=== PATIENT | female | born 1980 ===

== ENCOUNTER 2016-11-11 01:23 | Emergency (ER) | payer SELFPAY ==
[2016-11-11 01:43] VITALS: BP 134/79; PULSE 84; RESP 18; TEMP 98.2; O2SAT 100
--- NOTE | 2016-11-11 02:20 | ED PDOC ---
HPI: Allergic Reaction Time Seen by Provider: 11/11/16 01:56 Chief Complaint (Nursing): Allergic Reaction Chief Complaint (Provider): allergic reaction History Per: Patient History/Exam Limitations: no limitations Onset/Duration Of Symptoms: Days (1 week), Waxing/Waning Current Symptoms Are (Timing): Still Present Associated Symptoms: Skin Rash, Swelling, Itching Home/EMS Treatment: Benadryl Additional History Per: Patient Additional Complaint(s): 36 y/o female no past medical history presents for eval of possible allergic reaction x 1 week. Patient notes intermittent raised rash since onset, with associated periorbital swelling and throat itching last night, which prompted ED visit. Patient last took benadryl 2 days ago. Denies fever, nausea/vomiting , chest pain, shortness of breath, palpitations, abdominal pain, changes in bowel movements, known allergen. Past Medical History Reviewed: Historical Data, Nursing Documentation, Vital Signs Vital Signs: Last Vital Signs Temp 98.2 F 11/11/16 01:40 Pulse 84 11/11/16 01:40 Resp 18 11/11/16 01:40 BP 134/79 11/11/16 01:40 Pulse Ox 100 11/11/16 01:40 - Medical History PMH: Diabetes Denies: Chronic Kidney Disease - Surgical History Surgical History: Appendectomy - Family History Family History: States: Unknown Family Hx - Home Medications Home Medications: Ambulatory Orders Medication Instructions Recorded Nitrofurantoin Macrocrystals 100 mg PO BID #10 cap 10/04/15 [Macrobid] D-Methorphan/PE/Acetaminophen 1 pkt PO DAILY #8 pkt 04/06/16 [Theraflu Daytime Severe Cold & Cough 650 mg-2] Prednisone 50 mg PO DAILY #4 tablet 11/11/16 - Allergies Allergies/Adverse Reactions: Allergies Allergy/AdvReac Type Severity Reaction Status Date / Time No Known Allergies Allergy Unverified 10/19/12 02:55 Review of Systems ROS Statement: Except As Marked, All Systems Reviewed And Found Negative Eyes: Positive for: Eyelid Inflammation Skin: Positive for: Rash Physical Exam - Reviewed Nursing Documentation Reviewed: Yes Vital Signs Reviewed: Yes - Physical Exam Appears: Positive for: Well, Non-toxic, No Acute Distress Head Exam: Positive for: ATRAUMATIC, NORMAL INSPECTION, NORMOCEPHALIC Skin: Positive for: Rash (raised urtical rash noted b/l UE, abdomen) Eye Exam: Positive for: EOMI, PERRL, Periorbital swelling (mild upper lid swelling b/l). Negative for: Periorbital tenderness, Conjunctival injection ENT: Positive for: Normal ENT Inspection Cardiovascular/Chest: Positive for: Regular Rate, Rhythm Respiratory: Positive for: Normal Breath Sounds Gastrointestinal/Abdominal: Positive for: Normal Exam Back: Positive for: Normal Inspection Extremity: Positive for: Normal ROM Neurologic/Psych: Positive for: Alert, Oriented - ECG O2 Sat by Pulse Oximetry: 100 - Progress ED Course And Treament: IV solumedrol, IV benadryl, IV pepcid On re-eval, patient states she is feeling better. Rash improving, swelling improved. Patient educated on findings, discharged with rx Prednisone. Advised to continue Benadryl. Follow up PMD 2-3 days. Return to ED for worsening/concerning symptoms. Disposition - Clinical Impression Clinical Impression: Rash, Angioedema, Allergic reaction - Patient ED Disposition Is Patient to be Admitted: No Counseled Patient/Family Regarding: Studies Performed, Diagnosis, Need For Followup, Rx Given - Disposition Referrals: [facility] [Outside] Disposition: Routine/Home Disposition Time: 04:16 Condition: IMPROVED Prescriptions: Prednisone 50 mg PO DAILY #4 tablet Instructions: Acute Rash (ED), Angioedema (ED), General Allergic Reaction (ED) Print Language: DANISH
[2016-11-11] MEDS ORDERED: DiphenhydrAMINE 50 mg/ml Inj ONE (02:27)
[2016-11-11] MEDS: DiphenhydrAMINE 50 mg/ml Inj IV STA (02:42)
== END 2016-11-11 04:25 | disposition home or self-care (01) ==
LOC: H.ER 01:23
DX: T78.40XA Allergy, unspecified, initial encounter (principal)
CPT/HCPCS: 81025; 96374; 96375; 99282; J1200; J2930

== ENCOUNTER 2018-05-20 19:25 | Emergency (ER) | payer SELFPAY ==
[2018-05-20 20:01] VITALS: BMI 29.5
--- NOTE | 2018-05-20 22:49 | OBHP ---
Datetime: 05/20/2018 20:08 IP Adm Impression: Term, intrauterine IP Admit Plan: Observation/Evaluation; Discharge home Admit Comment, IP Provider: A 37 yo f 38.2 wk 06/01/17 with PMH of GDM, GBS+ ( on Abx sent by Dr. Amaral for evaluation before bieng induced tomorrow 05/21/2018 @ 8:00am in [facility]. Due to patient non-compliant with Her glucose control, pt is high risk and well need to be o n strict monitoring which can be done in [facility]. Otherwise patient have no compliant, she was checked yesterday and cervix was fully closed, Pt denies any vag bleed/discharge or water gush. she also denies any contraction. Pt report good movement. PCP: Dr Amaral PMH: GDM PSH none OBGYN: + GBS on Abx FH: pt denies any FH Social: denies smoke, ETOH, Drug use. 20:19 Assessment and plan A 37 yo f 38.2 wk 06/01/17 with PMH of GDM, GBS+ ( on Abx sent by Dr. Amaral for evaluation before bieng induced tomorrow 05/21/2018 @ 8:00am in [facility]. Pt is not in acute distress cervix as per documentation its closed ( checked 05/19/18) Vitals WNL, GLucose 110 FHS reactive Plan Monitor vitals Monitor FSH Will send to [facility] If all reassuring pt will be sent home, and need to follow up tomorrow in [facility] for induction of labor Selwyn Moffett PGY1 OB Hospitalist Addendum: Pt seen by me. Agree w/ above. 37 yo at 38+2 weeks w/ GDM, on m etformin BID noncompliant w/ checking her sugars and did not show up for an appointment w/ Dr. Saurav leonard. Pt sent here for NST/ BPP. If reassuring testing, pt is to be induced tomorrow at [facility]. Pt had no c/o, reported FM. NST reactive. BPP 8/8. Pt discharged home. (ES) Pelvic Type - PN: Not Done Extremities - PN: Normal Abdomen - PN: Normal Back - PN: Normal Breast - PN: Not Done Lungs - PN: Normal Heart - PN: Normal Thyroid - PN: Normal Neurologic - PN: Normal HEENT - PN: Normal General - PN: Normal FHR - Baseline A Provider: 145 Comments, ACOG Physical Exam: Pt is not in acute distress Heart s1/s2 heard no extra heart sound lung clear effortless abd nontender bs+ Gestation - Est Wks by US: 38.2 EGA AdmitDate IP: 38.2 Vital Signs Provider: Reviewed; Within Normal Limits IP Chief Complaint: evaluation NICHD Variability Prov Fetus A: Moderate 6-25bpm NICHD Accel Fetus A IP Provider: [id number] FHR Category Provider Fetus A: Category I Genitourinary Exam: Normal DTRs - PN: Normal
[2018-05-21 10:23] VITALS: BP 118/65; PULSE 61; RESP 18; TEMP 98.1; O2SAT 100
--- NOTE | 2018-05-22 12:50 | US ---
Date of service: 05/20/2018 PROCEDURE: Biophysical profile HISTORY: GDM COMPARISON: None TECHNIQUE: Standard protocol for this study/examination. FINDINGS: FINDINGS: Biophysical profile score 8/8 Based on the followin. breathing movements: 2/2 2. Gross body movement: 2/2 3. tone: 2/2 4. Qualitative amniotic fluid index: 2/2 Posterior placenta. Cephalic presentation. Closed cervix 3.4 cm. Calculated cardiac rate 145 beats per minute. Gestational age based on LMP 38 weeks 2 days. CHON 06/01/2018. IMPRESSION: Biophysical profile score 8/8. Concordant findings (preliminary report) provided by [facility]
== END 2018-05-20 22:35 | disposition home or self-care (01) ==
LOC: H.EROB2 19:25
DX: O09.93 Supervision of high risk pregnancy, unspecified, third trimester (principal); O24.419 Gestational diabetes mellitus in pregnancy, unspecified control; Z3A.38 38 weeks gestation of pregnancy